=== PATIENT | female | born 1965 | race Caucasian/White ===

== ENCOUNTER 2017-09-24 13:45 | Emergency (ER) | payer OTHER ==
[~2017-09-24] VITALS: Ht 167.6 cm; Wt 45.8 kg
[~2017-09-24 13:45] MED LIST: ATIVAN1 MG PO; B12INJ IM; BENADRYL25 MG PO; CIPRO500 MG PO; COMPAZINE10 M2 PO; ESTROVEN ENERG1 EACH PO; FLUOROURAC1 GM/20 ML IV; HOME MEDICATION TOP; LIDOCAINE 2%2 %/5 GM TOP; MITOMYCIN IV; ONDANSETRON HCL4 M2 PO; PHENAZOPYRIDIN200 M2 PO; PHENERGAN12.5 M2 PO; SYMBICORT80 MCG/4.1 INH
[2017-09-24] MEDS ORDERED: FOSAMAX 70 MG T70 MG PO (13:58)
[2017-09-24] MEDS ORDERED: VITAMIN D1000 UNI1 PO (13:59)
[2017-09-24] MEDS ORDERED: CENTRUM SILVER1 EAC4 PO (13:59)
[2017-09-24 14:23] LABS: ABSOLUTE EOSINOPHILS 0.1 thou/uL (0.0-0.7); ABSOLUTE LYMPHOCYTES 1.2 thou/uL (0.8-5.3); ABSOLUTE MONOCYTES 0.5 thou/uL (0.0-1.2); ABSOLUTE NEUTROPHILS 2.2 thou/uL (1.6-8.1); EOSINOPHILS 2.9 %; HEMATOCRIT 41.2 % (37.0-47.0); LYMPHOCYTES 30.7 %; MCH 34.4 pg (26.0-34.0); MCHC 33.9 g/dL (28.0-37.0); MCV 101.4 fL (80.0-100.0); MONOCYTES 11.8 %; MPV 6.9 fl. (7.2-11.1); NUCLEATED RBCS 0 /100WBC; PLATELET COUNT* 248 thou/uL (150-400); POLYS 53.6 %; RBC 4.06 mil/uL (4.20-5.00); RDW-CV 14.3 % (10.5-14.5); WBC 4.1 thou/uL (4.0-11.0)
[2017-09-24 14:34] LABS: ANION GAP 2 mmol/L (7-16); BUN 9 mg/dL (7-18); CALCIUM 9.4 mg/dL (8.5-10.1); CHLORIDE 104 mmol/L (98-107); CO2 32 mmol/L (21-32); GLUCOSE 96 mg/dL (70-99); POTASSIUM 4.3 mmol/L (3.5-5.1); SODIUM 138 mmol/L (136-145)
[2017-09-24 14:41] LABS: ALBUMIN 3.9 g/dL (3.4-5.0); ALKALINE PHOSPHATASE 63 U/L (46-116); SGOT 21 U/L (15-37); SGPT 27 U/L (30-65); TOTAL BILIRUBIN 0.5 mg/dL (<0.1-1.0); TOTAL PROTEIN 7.8 g/dL (6.4-8.2); TROPONIN-I LEVEL <0.06 ng/mL (<0.06)
[2017-09-24] MEDS ORDERED: TESSALON PERLE100 MG PO (15:17)
[2017-09-24] MEDS ORDERED: ACETAMINOPHEN-1 EAC1 PO (15:28)
[2017-09-24 15:41] VITALS: BP 94/54
--- NOTE | 2017-09-25 10:26 | EKG ---
[place] [address] ELECTROCARDIOGRAM REPORT Name: KAYDANNY CARVALHO Room: [facility]#: [id number] Admission: 09/24/17 Attend Phys: Discharge: 09/24/17 Date of : 61 Report #: [id number] THIS REPORT FOR: //name// [facility] ED Test Date: 2017-09-24 Test Time: 14:10:46 Pat Name: DANNY VILLANUEVA Department: Room: Gender: F Junior Designer: Torsten FRANCO : 1965 Requested By: Amy Tejeda Order Number: [id number] MD: Jeff Herrera Measurements Intervals [place] Rate: 54 P: -8 MA: 139 QRS: 79 QRSD: 88 T: 77 QT: 431 QTc: 409 Interpretive Statements Sinus bradycardia ST elev, probable normal early repol pattern No previous ECG available for comparison Electronically Signed On 09-25-2017 10:26:14 CDT by Jeff Herrera [email or web address] <ELECTRONICALLY SIGNED> By: Jeff Herrera MD, [facility] 09/25/17 1026 1410 1410 Jeff Herrera MD, FACC /EPI
== END 2017-09-24 15:42 | disposition home or self-care (01) ==
LOC: M.ERS 13:45
PROVIDERS: Nurse Practitioner Family
DX: J44.9 Chronic obstructive pulmonary disease, unspecified (principal); R07.81 Pleurodynia; M81.0 Age-related osteoporosis without current pathological fracture; F17.210 Nicotine dependence, cigarettes, uncomplicated; Z85.048 Personal history of other malignant neoplasm of rectum, rectosigmoid junction, and anus; Z88.2 Allergy status to sulfonamides

== ENCOUNTER 2017-09-29 22:13 | Inpatient (IN) | payer OTHER ==
[~2017-09-29] VITALS: Ht 157.5 cm; Wt 53.3 kg
[2017-09-29 22:13] VITALS: BP 129/71
[~2017-09-29 22:13] MED LIST changes: +ACETAMINOPHEN-1 EAC1 PO; +CENTRUM SILVER1 EAC4 PO; +FOSAMAX 70 MG T70 MG PO; +TESSALON PERLE100 MG PO; +VITAMIN D1000 UNI1 PO
[2017-09-29 22:36] LABS: ABSOLUTE BASOPHILS 0.1 thou/uL (0.0-0.2); ABSOLUTE EOSINOPHILS 0.2 thou/uL (0.0-0.7); ABSOLUTE LYMPHOCYTES 1.6 thou/uL (0.8-5.3); ABSOLUTE MONOCYTES 0.5 thou/uL (0.0-1.2); ABSOLUTE NEUTROPHILS 2.1 thou/uL (1.6-8.1); BASOPHILS 1.3 %; EOSINOPHILS 3.8 %; HEMATOCRIT 40.4 % (37.0-47.0); HEMOGLOBIN 13.7 gm/dL (12.0-15.0); MCH 34.9 pg (26.0-34.0); MCV 102.6 fL (80.0-100.0); MONOCYTES 10.8 %; MPV 7.2 fl. (7.2-11.1); NUCLEATED RBCS 0 /100WBC; PLATELET COUNT* 286 thou/uL (150-400); POLYS 48.1 %; RBC 3.94 mil/uL (4.20-5.00); RDW-CV 14.5 % (10.5-14.5); WBC 4.5 thou/uL (4.0-11.0)
[2017-09-29 22:41] LABS: ANION GAP 5 mmol/L (7-16); BUN 12 mg/dL (7-18); CALCIUM 9.1 mg/dL (8.5-10.1); CHLORIDE 106 mmol/L (98-107); CO2 28 mmol/L (21-32); GLUCOSE 122 mg/dL (70-99); SODIUM 139 mmol/L (136-145)
[2017-09-29 22:53] LABS: ALBUMIN 3.6 g/dL (3.4-5.0); ALKALINE PHOSPHATASE 69 U/L (46-116); NT-PRO BRAIN NAT PEPTIDE 94 pg/mL (<300); SGOT 17 U/L (15-37); SGPT 22 U/L (30-65); TOTAL BILIRUBIN 0.2 mg/dL (<0.1-1.0); TOTAL PROTEIN 7.4 g/dL (6.4-8.2); TROPONIN-I LEVEL <0.06 ng/mL (<0.06)
[2017-09-30 02:11] VITALS: BP 108/89
[2017-09-30 07:49] LABS: HEMOGLOBIN 12.6 gm/dL (12.0-15.0); MCH 34.3 pg (26.0-34.0); MCHC 33.2 g/dL (28.0-37.0); MCV 103.1 fL (80.0-100.0); MPV 7.2 fl. (7.2-11.1); RBC 3.69 mil/uL (4.20-5.00); RDW-CV 14.4 % (10.5-14.5); WBC 6.4 thou/uL (4.0-11.0)
[2017-09-30 08:06] LABS: ALBUMIN 3.1 g/dL (3.4-5.0); CALCIUM 9.2 mg/dL (8.5-10.1); CREATININE 0.9 mg/dL (0.6-1.3); POTASSIUM 4.3 mmol/L (3.5-5.1); TOTAL BILIRUBIN 0.2 mg/dL (<0.1-1.0); TOTAL PROTEIN 6.7 g/dL (6.4-8.2)
[2017-09-30 09:33] LABS: URINE BILIRUBIN NEGATIVE (Negative); URINE BLOOD NEGATIVE (Negative); URINE CLARITY CLEAR; URINE COLOR YELLOW; URINE GLUCOSE-RANDOM NEGATIVE (Negative); URINE KETONES NEGATIVE (Negative); URINE LEUKOCYTES-REFLEX NEGATIVE (Negative); URINE NITRITE-REFLEX NEGATIVE (Negative); URINE PROTEIN NEGATIVE (Negative); URINE UROBILINOGEN 0.2 E.U./dl (0.2-1.0)
[2017-09-30 09:41] LABS: AMP/METHAMP Negative (Negative); BARBITURATES Negative (Negative); BENZODIAZEPINES Negative (Negative); COCAINE Negative (Negative); METHADONE Negative (Negative); OPIATES POSITIVE (Negative); PCP Negative (Negative); THC Negative (Negative)
--- NOTE | 2017-09-30 11:14 | EKG ---
[place] [address] ELECTROCARDIOGRAM REPORT Name: DANNY JENKINS Room: [address] ADM IN .R.#: [id number] Admission: 09/30/17 Attend Phys: Porsche Bolden Discharge: Date of : 61 Report #: [id number] THIS REPORT FOR: //name// [facility] ED Test Date: 2017-09-29 Test Time: 22:25:11 Pat Name: DANNY JENKINS Department: Room: [address] Gender: F [employer] Operator: AP : 1965 Requested By: Mira Jenkins Order Number: [id number] Reading MD: Pradeep Yates Measurements Intervals [place] Rate: 76 P: 58 MS: 124 QRS: 83 QRSD: 96 T: 77 QT: 370 QTc: 417 Interpretive Statements Sinus rhythm Nonspecific T abnormalities, lateral leads Compared to ECG 09/24/2017 14:10:46 T-wave abnormality now present Sinus bradycardia no longer present ST (T wave) deviation no longer present Electronically Signed On 09-30-2017 11:14:05 CDT by Pradeep Yates [email or web address] <ELECTRONICALLY SIGNED> By: Khushbu Yates MD, [facility] 09/30/17 1114 2225 2225 Khushbu Yates MD, [facility] /EPI
[2017-09-30 11:45] VITALS: BP 85/53
[2017-09-30 15:46] VITALS: BP 89/51
[2017-09-30 20:00] VITALS: BP 96/52
[2017-10-01] VITALS (9 sets, daily range): BP systolic 76–113; BP diastolic 33–71
[2017-10-02] VITALS (8 sets, daily range): BP systolic 87–126; BP diastolic 45–81
[2017-10-02] MEDS ORDERED: PREDNISONE 10 M10 MG PO (13:58)
[2017-10-02] MEDS ORDERED: AUGMENTIN 875-1 EACH PO (13:58)
== END 2017-10-02 19:00 | disposition home or self-care (01) | DRG 542 ==
LOC: M.ERS 22:13 → M.2W 09-30 00:58 → M.TBA-ER 09-30 00:58 → M.2W 09-30 01:50
PROVIDERS: Emergency Medicine; ADMIT Internal Medicine
DX: M84.48XA Pathological fracture, other site, initial encounter for fracture (principal); J96.21 Acute and chronic respiratory failure with hypoxia; J44.1 Chronic obstructive pulmonary disease with (acute) exacerbation; M81.0 Age-related osteoporosis without current pathological fracture; F17.210 Nicotine dependence, cigarettes, uncomplicated; Z83.6 Family history of other diseases of the respiratory system; Z85.048 Personal history of other malignant neoplasm of rectum, rectosigmoid junction, and anus; Z87.81 Personal history of (healed) traumatic fracture; Z88.2 Allergy status to sulfonamides; Z79.899 Other long term (current) drug therapy; Z92.21 Personal history of antineoplastic chemotherapy